=== PATIENT | female | born 1990 | race Caucasian/White ===

== ENCOUNTER 2020-09-01 23:15 | Emergency (ER) | payer OTHER, MEDICAID ==
[~2020-09-01] VITALS: Ht 149.9 cm; Wt 49.9 kg
[2020-09-02] MEDS ORDERED: ERYTHROMYCIN E3.5 G3 OPHTHALMIC (00:08)
[2020-09-02 00:28] VITALS: BP 109/70
== END 2020-09-02 00:28 | disposition home or self-care (01) ==
LOC: M.ERS 23:15
DX: H18.821 Corneal disorder due to contact lens, right eye (principal); E11.9 Type 2 diabetes mellitus without complications; H57.12 Ocular pain, left eye; Z90.89 Acquired absence of other organs